=== PATIENT | female | born 1955 | race Caucasian/White ===

== ENCOUNTER 2022-06-15 09:09 | Emergency (ER) | payer OTHER, SELFPAY ==
[2022-06-15 09:15] VITALS: BP 154/82; PULSE 78; RESP 18; TEMP 36.2; O2SAT 100; BMI 26.6
--- OUTSIDE RECORDS SUMMARY | 2022-06-15 09:53 | XMS_ITS | Clinical Summary ---
:1955 Author Organization [employer] [facility] [place] [address] Care Team Providers Name Role Phone Miesha Garay MD Primary Care Provider [phone] Allergies Active Allergy Reactions Severity Noted Date Comments Penicillins Rash 08/09/2015 Medications Medication Sig Dispensed Refills Start Date End Date Status fluticasone (50 mcg Inhale 2 1 Bottle 11 11/06/2020 Active per actuation) Sprays into nasal solution both nostrils (FLONASE)Indication once daily. s: Non-seasonal allergic rhinitis due to pollen azelastine 0.05% Place 1 Drop 1 Bottle 3 11/06/2020 Active ophthalmic into both eyes (OPTIVAR) 0.05 % 2 times daily. ophthalmic solutionIndications : Non-seasonal allergic rhinitis due to pollen cetirizine (ZYRTEC) Take 1 Tablet 0 05/22/2022 Active 10 mg tablet (10 mg) by mouth once daily. ciprofloxacin HCl Take 1 Tablet 14 Tablet 0 06/12/2022 0 Active (CIPRO) 500 mg (500 mg) by 22 tabletIndications: mouth two Sigmoid times daily diverticulitis for 7 days. metroNIDAZOLE Take 1 Tablet 14 Tablet 0 06/12/2022 06/19/20 A ctive (FLAGYL) 500 mg (500 mg) by 22 tabletIndications: mouth two Sigmoid times daily diverticulitis for 7 days. Avoid alcohol. fexofenadine Take 1 tablet 90 tablet 3 11/06/2020 05/22/20 Di scontinued (DALI) 180 mg by mouth once 22 (*Patient states tabletIndications: daily with a no longer Non-seasonal meal. taking/ Not on allergic rhinitis se nding facility due to pollen list) triamcinolone 0.5% Apply 30 g 1 06/21/2021 05/22/20 Discontinued (ARISTOCORT) 0.5 % topically to 22 (*Med creamIndications: affected co mplete/Regimen Bug bite, initial area(s) 3 co mplete/Level encounter times daily. of care change) fluconazole Take 1 Tablet 2 Tablet 0 06/12/2022 06/12/20 Exp ired (DIFLUCAN) 150 mg (150 mg) by 22 tabletIndications: mouth one time Sigmoid for 1 dose. diverticulitis For vaginal yeast infection. Repeat the dose in one week if symptoms persist. Active Problems Problem Noted Date Adenomatous colon polyp 12/07/2020 Overview: Colonoscopy 12/2020 polyp, repeat in 7 ye ars Non-seasonal allergic rhinitis due to pollen Encounters Date Type Specialty Care Team Description 06/12/2022 Ancillary Procedure Arrived 06/12/2022 Office Visit Denise Rocha Abdominal Pain (RLQ pain CIELO Stone for about 5 day s-comes and goes-this m orning worse) 06/12/2022 Travel 06/12/2022 Nurse Triage Miesha Garay Abdominal P darwin Mathew MD 06/04/2022 Ancillary Procedure 06/04/2022 Travel 05/22/2022 Office Visit Miesha Garay Medicare FI RST ANNUAL MD Priyanka Visit 05/22/2022 Travel from Last 3 Months Immunizations Name Administration Dates Next Due Influenza, IIV3 (Age 6-35 mos) 07/22/2013 Influenza, IIV3 (Age >=3 years) 08/13/2017 Influenza, IIV4 06/07/2015 Tdap 07/22/2013 Family History Medical History Relation Name Comments Cancer-breast Sister 1 Ebony Relation Name Status Comments Sister 1 Ebony Alive Sister 2 Alive Social History Tobacco Use Types Packs/Day Years Used Date Never Smoker Smokeless Tobacco: Never Used Tobacco Cessation: Counseling Given: Yes Alcohol Use Standard Drinks/Week Comments Yes 2 (1 standard drink = 0.6 oz pure alcoho l) Sex Assigned at Date Recorded Not on file COVID-19 Exposure Response Date Recorded In the last 10 days, have you been in contact with No / Unsu re 06/12/2022 7:14 AM CDT someone who was confirmed or suspected to have Coronavirus/COVID-19? Obstetrics History Last Filed Vital Signs Vital Sign Reading Time Taken Comments Blood Pressure 130/77 06/12/2022 10:16 AM CDT Pulse 66 06/12/2022 10:16 AM CDT Temperature 36.6 ??C (97.9 ??F) 06/12/2022 10:16 AM CDT Respiratory Rate 18 09/17/2021 7:40 PM [employer] Oxygen Saturation 100% 06/12/2022 10:16 AM CDT Inhaled Oxygen Concentration - - Weight 79.4 kg (175 lb) 06/12/2022 10:16 AM CDT Height 171.5 cm (5' 7.52) 05/22/2022 12:35 PM CDT Body Mass Index 26.99 05/22/2022 12:35 PM CDT Plan of Treatment Health Maintenance Due Date Last Done Comments Zoster (shingles) series for age 0109/10/2004 50+ (1 of 2) DEXA/DXA scan for age 65+ 2019 Pneumococcal series for age 65+ (1 2019 - PCV) COVID-19 vaccine series (3 - 01/23/2021 11/28/2020, 021 Booster for Pfizer series) Influenza for age 65+ 05/08/2022 08/13/2017, 06/07/2015 BMI (ht and wt on same day) for 05/22/2023 05/22/2022, 09/07, age 18+ 08/20/2021, Additional history exists Depression screening for age 12+ 05/22/2023 05/22/2022, , 11/06/2020, Additional history exists Medicare Wellness for age 65+ 05/22/2023 05/22/2022 Mammogram for age 45-75 06/04/2023 06/04/2022, 11/27/2020 Tetanus booster 07/22/2023 07/22/2013 Lipids for age 45-75 11/06/2025 11/06/2020 Colonoscopy through age 75 12/06/2027 12/05/2020, Tdap Completed 07/22/2013 Hepatitis C screening for age Completed 08/20/2021 18-79 Procedures Procedure Name Priority Date/Time Associated Diagnosis Comme nts CT ABDOMEN PELVIS W STAT 06/12/2022 11:39 Abdominal pain, R LQ Results for this AM CDT (right lower procedure are i n quadrant) the results Nausea section. Loose stools CREATININE,ISTAT Routine 06/12/2022 11:17 Observation or Resul ts for this AM CDT evaluation for procedure are in suspected condition the resu lts section. BILIRUBIN DIRECT Add On 06/12/2022 10:42 Abdominal pain, RLQ Results for this AM CDT (right lower procedure are i n quadrant) the results section. CBC WITH AUTO Routine 06/12/2022 10:42 Abdominal pain, RLQ Res ults for this DIFFERENTIAL AM CDT (right lower procedure are i n quadrant) the results Nausea section. Loose stools COMP METABOLIC PANEL Routine 06/12/2022 10:42 Abdominal pain, RLQ Results for this AM CDT (right lower procedure are i n quadrant) the results Nausea section. Loose stools CBC WITH AUTO Routine 06/12/2022 10:42 Abdominal pain, RLQ Res ults for this DIFFERENTIAL AM CDT (right lower procedure are i n quadrant) the results Nausea section. Loose stools XR MAMMO SELWYN BILAT Routine 06/04/2022 8:34 AM Visit for scree dom Results for this SCREEN CDT mammogram procedure are i n the results section. from Last [address] ABDOMEN PELVIS W (06/12/2022 11:39 AM CDT) Anatomical Region Laterality Modality Abdomen, Pelvis, AORTA, LIVER, SPLEEN Co mputed Tomography Specimen (Source) Anatomical Collection Method Collection Time Re ceived Time Location / / Volume Laterality 06/12/2022 12:14 PM CDT Impressions 06/12/2022 12:14 PM CDT Prominence of the periuterine vasculature with enlargement of the left ovarian vein measuring up to 1.2 cm. Findings can be seen in pelvic congestion syndrome. There are scattered colonic diverticula with possible mild inflammation adjacent to the sigmoid colon suspicious for mild diverticulitis. No evidence of perforation or adjacent abscess. Alternatively th is mild inflammation may be due to conge stion from the suspected pelvic congestion. Please note that all CT scans at this fa cility use dose modulation, iterative reconstruction, and/or weight-based dosing when appropriate to reduce radiation dose to as low as reasonably achievable. Dictated by Genaro Gaona MD @ 06/12/2022 12:14:40 PM (Electronically Signed) Narrative 06/12/2022 12:14 PM CDT For Patients: ??As a result of the Cures Act, medical imaging exams and procedure report s are released immediately into your [employer] medical record. ??You may view this report before your referring provider. ??If you have questions, please contact your health care provider. INDICATION: RLQ PAIN. TECHNIQUE: CT abdomen and pelvis with 100 cc Omnipa que 350 IV contrast. COMPARISON: None. FINDINGS: The liver is normal in size, shape and a ttenuation. Gallbladder and biliary tree are normal. The spleen, adrenal glands and pancreas are within normal limits. The kidneys are unremarkable. No evidence of bowel obstruction. The ap pendix appears unremarkable. There are scattered colonic diverticula with mild inflammation adjacent to the sigmoid colon suspicious for mild diverticulitis. No evidence of perforation or adjacent abscess. No significant free fluid and no free ai r. Prominence of the periuterine vasculatur e with enlargement of the left ovarian vein measuring up to 1.2 cm. Findings can be seen in pelvic congestion syndrome. The lower chest is unremarkable. Procedure Note Genaro Gaona MD - 06/12/2022F ormatting of this note might be different from the original. For Patients: As a result of the Cures Act, medical imaging exams and procedure reports are released immediately into your electronic medical record. You may view this report before your referring provider. If you have questions, please contact [facility] health care provider. INDICATION: RLQ PAIN. TECHNIQUE: CT abdomen and pelvis with 100 cc Omnipa que 350 IV contrast. COMPARISON: None. FINDINGS: The liver is normal in size, shape and a ttenuation. Gallbladder and biliary tree are normal. The spleen, adrenal glands and pancreas are within normal limits. The kidneys are unremarkable. No evidence of bowel obstruction. The ap pendix appears unremarkable. There are scattered colonic diverticula with mild inflammation adjacent to the sigmoid colon suspicious for mild diverticulitis. No evidence of perforation or adjacent abscess. No significant free fluid and no free ai r. Prominence of the periuterine vasculatur e with enlargement of the left ovarian vein measuring up to 1.2 cm. Findings can be seen in pelvic congestion syndrome. The lower chest is unremarkable. IMPRESSION: Prominence of the periuterine vasculatur e with enlargement of the left ovarian vein measuring up to 1.2 cm. Findings can be seen in pelvic congestion syndrome. There are scattered colonic diverticula with possible mild inflammation adjacent to the sigmoid colon suspicious for mild diverticulitis. No evidence of perforation or adjacent abscess. Alternatively this mild inflammation may be due to congestion fr om the suspected pelvic congestion. Please note that all CT scans at this [facility] use dose modulation, iterative reconstruction, and/or weight-based dosing when appropriate to reduce radiation dose to as low as reasonably achievable. Dictated by Genaro Gaona MD @ 06/12/2022 12:14:40 PM (Electronically Signed) Denise BUCK CT CREATININE,ISTAT (06/12/2022 11:17 AM CDT) athologist Signature CREATININE, 0.70 0.57 - 06/12/2022 [facility] POCT 1.11 mg/dL 11:33 AM T [facility] eGFR >90 >90 06/12/2022 [facility] mL/min/1.7 11:[address] Comment: As of 2021, eGFR is calcu lated by the CKD-EPI creatinine equation without race adjustment. eGFR can be inf luenced by muscle mass, exercise, and diet. The reported eGFR is an estimation only and is only applicable if the renal function is stable. Specimen Anatomical Collection Method Collection Time Receive d Time (Source) Location / / Volume Laterality Blood BLOOD SPECIMEN / 06/12/2022 11:17 022 Unknown AM CDT 11:33 AM CDT Denise BUCK CHEMISTRY Performing Organization Address City/State/ZIP Code Phon e Number [facility] [address] [place] [address] CBC WITH AUTO DIFFERENTIAL (06/12/2022 10:42 AM CDT) athologist Signature WHITE BLOOD 5.3 4.5 - 11.0 06/12/2022 [facility] COUNT thou/cu mm 10:47 AM [facility] RED BLOOD COUNT 4.68 4.00 - 06/12/2022 [facility] 5.20 10:47 AM T [place] mil/cu mm CLINIC HEMOGLOBIN 14.7 12.0 - 06/12/2022 [facility] 16.0 g/dL 10:47 AM [facility] HEMATOCRIT 42.4 33.0 - 06/12/2022 [facility] 51.0 % 10:47 AM [facility] MCV 91 80 - 100 06/12/2022 [facility] fL 10:47 AM [facility] MCH 31.4 26.0 - 06/12/2022 [facility] 34.0 pg 10:47 AM [facility] MCHC 34.7 32.0 - 06/12/2022 [facility] 36.0 g/dL 10:47 AM [facility] RDW 14.2 11.5 - 06/12/2022 [facility] 15.5 % 10:47 AM [facility] PLATELET COUNT 237 140 - 440 06/12/2022 [facility] thou/cu mm 10:47 AM [facility] MPV 9.4 6.5 - 11.0 06/12/2022 [facility] 10:47 AM [facility] % NEUT 68.0 % 06/12/2022 [facility] 10:47 AM [facility] % LYMPH 23.0 % 06/12/2022 [facility] 10:47 AM [facility] % MONO 7.8 % 06/12/2022 [facility] 10:47 AM [facility] % EOS 1.0 % 06/12/2022 [facility] 10:47 AM T [facility] % BASO 0.2 % 06/12/2022 [facility] 10:47 AM T [facility] ABSOLUTE 3.6 1.7 - 7.0 06/12/2022 [facility] NEUTROPHILS thou/cu mm 10:47 AM T [facility] ABSOLUTE 1.2 0.9 - 2.9 06/12/2022 [facility] LYMPHOCYTES thou/cu mm 10:47 AM T [facility] ABSOLUTE 0.4 <0.9 06/12/2022 [facility] MONOCYTES thou/cu mm 10:47 AM CDT [facility] ABSOLUTE 0.1 <0.5 06/12/2022 [facility] EOSINOPHILS thou/cu mm 10:47 AM CDT [facility] ABSOLUTE 0.0 <0.3 06/12/2022 [facility] BASOPHILS thou/cu mm 10:47 AM CDT [facility] Specimen Anatomical Collection Method / Collection Time Recei ian Time (Source) Location / Volume Laterality Blood BLOOD SPECIMEN / Venipuncture / 06/12/2022 10:42 06/12 Unknown Unknown AM CDT 10:43 AM CDT Denise BUCK HEMATOLOGY Performing Organization Address City/State/ZIP Code Phon e Number [facility] [address] [place] [address] (ABNORMAL) BILIRUBIN DIRECT (06/12/2022 10:42 AM CDT) P athologist Signature BILIRUBIN,DIRE 0.6 (H) 0.1 - 0.5 06/13/2022 [facility] CT mg/dL 2:50 PM CDT [facility] Specimen Anatomical Collection Method / Collection Time Recei ian Time (Source) Location / Volume Laterality Blood BLOOD SPECIMEN / Venipuncture / 06/12/2022 10:42 06/12 Unknown Unknown AM CDT 10:43 AM CDT Denise BUCK CHEMISTRY Performing Organization Address City/State/ZIP Code Phon e Number [facility] [address] [place] [address] LAB[facility] [address] LABORATORY (ABNORMAL) COMP METABOLIC PANEL (06/12/2022 10:42 AM CDT) Patholo gist Method Time Signature SODIUM 141 135 - 145 06/13/2022 [facility] mmol/L 11:37 AM CDT [facility] POTASSIUM 4.8 3.5 - 5.0 06/13/2022 [facility] mmol/L 11:37 AM CDT [facility] CHLORIDE 106 98 - 110 06/13/2022 [facility] mmol/L 11:37 AM CDT [facility] CO2,TOTAL 27 21 - 31 06/13/2022 [facility] mmol/L 11:37 AM CDT [facility] ANION GAP 8 5 - 18 06/13/2022 [facility] 11:37 AM CDT [facility] GLUCOSE 92 65 - 100 06/13/2022 [facility] mg/dL 11:37 AM CDT [facility] CALCIUM 9.8 8.5 - 10.5 06/13/2022 [facility] mg/dL 11:37 AM CDT [facility] BUN 11 8 - 25 06/13/2022 [facility] mg/dL 11:37 AM CDT [facility] CREATININE 0.77 0.57 - 06/13/2022 [facility] 1.11 mg/dL 11:37 AM CDT [facility] BUN/CREAT RATIO 14 10 - 20 06/13/2022 [facility] 11:37 AM CDT [facility] ALBUMIN 4.5 3.2 - 4.6 06/13/2022 [facility] g/dL 11:37 AM CDT [facility] PROTEIN,TOTAL 6.8 6.0 - 8.0 06/13/2022 [facility] g/dL 11:37 AM CDT [facility] GLOBULIN 2.3 2.0 - 3.7 06/13/2022 [facility] g/dL 11:37 AM CDT [facility] A/G RATIO 2.0 1.0 - 2.0 06/13/2022 [facility] 11:37 AM CDT [facility] BILIRUBIN,TOTAL 1.7 (H) 0.2 - 1.2 06/13/2022 [facility] mg/dL 11:37 AM CDT [facility] ALK PHOSPHATASE 73 50 - 136 06/13/2022 [facility] IU/L 11:37 AM CDT [facility] ALT (SGPT) 19 8 - 45 06/13/2022 [facility] IU/L 11:37 AM CDT [facility] AST (SGOT) 22 2 - 40 06/13/2022 [facility] IU/L 11:37 AM CDT [facility] eGFR 85 (L) >90 06/13/2022 [facility] mL/min/1.7 11:37 AM CDT [facility] 3m2 TRAL LABORATORY Comment: As of 2021, eGFR is calcu lated by the CKD-EPI creatinine equation without race adjustment. eGFR can be inf luenced by muscle mass, exercise, and diet. The reported eGFR is an estimation only and is only applicable if the renal function is stable. Specimen Anatomical Collection Method / Collection Time Recei ian Time (Source) Location / Volume Laterality Blood BLOOD SPECIMEN / Venipuncture / 06/12/2022 10:42 06/12 Unknown Unknown AM CDT 10:43 AM CDT Denise BUCK CHEMISTRY Performing Organization Address City/State/ZIP Code Phon e Number [facility] [address] [place] [address] [facility] [address] LABORATORY XR MAMMO SELWYN BILAT SCREEN (06/04/2022 8:34 AM CDT) Anatomical Region Laterality Modality BREASTS, Breast Left, Breast Right Bilateral Mammo graphy Specimen (Source) Anatomical Location Collection Method / Collectio n Time Received Time / Laterality Volume Impressions 06/04/2022 4:15 PM CDT ??There is no radiographic evidence for malignancy. ??Recommend annual mammograms. MAMMOGRAM ASSESSMENT: ??ACR 1 Negative PATIENTS: You will also receive a letter with your examination results in an easy to read format. ??If you have qu estions about your results, please contact your referring provider. Narrative 06/04/2022 4:15 PM CDT For Patients: As a result of the Century Cures Act, medical imaging exams and procedure reports are released immediately into your electronic medical record. You may view this report before your referring provider. If you have questions, please contact doctors hospital provider. XR MAMMO SELWYN BILAT SCREEN [[id number]] CLINICAL HISTORY: ??This is an asymptoma tic 66 y.o. patient. INDICATION FOR EXAM: Mammogram Screening . TECHNIQUE: CC & MLO views were obtained. ??This study was evaluated with the assistance of Computer-Aided Detecti on. Breast Tomosynthesis was used in interpretation. COMPARISON FILM: Yes 11/27/20 [facility] ?? FINDINGS: ??The breasts have scattered a reas of fibroglandular density. There are no dominant masses, suspicious micro calcifications or areas of architectural distortion. Miesha Garay MD MAMMO from Last 3 Months Insurance Payer Benefit Plan / Subscriber ID Effective Dates Phone Addre ss Type Group [employer] [id number] 2021-Present [address] [employer] [place] [address] Care Teams Dairy Equipment Repairer Relationship Specialty Start Date End Date Miesha Garay MD PCP - General Family Practice 05/24/21 [address] [place] [id number]
--- NOTE | 2022-06-15 09:55 | ED_ITS ---
HPI - General Adult General Chief complaint: Unspecified Complaint, Adult Stated complaint: Diverticulitis Time Seen by Provider: 06/15/22 09:28 History of Present Illness HPI narrative: 66-year-old woman presenting to the emergency department with concern of potentially worsening diverticulitis. Was diagnosed a few days ago initiated on ciprofloxacin and metronidazole. She had gone in with some mild right low abdominal pain thinking she had appendicitis. Diagnosis was made with CT imaging. Pain is continued to improve. She has not had any fever. What is concerning though is that last night started to have diarrhea which continue this morning. No melena or hematochezia described. She did have associated nausea. That has settled again. Anticipating travel here shortly to [place]. She has not had any COVID exposures. No rashes. Generally healthy. Related Data Home Medications Medication Instructions Recorded Confirmed ciprofloxacin HCl 500 mg tablet mg 06/15/22 metronidazole 500 mg tablet mg 06/15/22 Allergies Allergy/AdvReac Type Severity Reaction Status Date / Time Penicillins Allergy Verified 06/15/22 09:19 Review of Systems Status of ROS: Reports: 10 or more systems reviewed and unremarkable except as noted in History and below PFSH PFS Social History Smoking Status: Never smoker Do you use any of these nicotine containing products: None How often do you have a drink containing alcohol: never How often do you have six or more drinks on one occasion: Never AUDIT-C Alcohol total score: 0 Non-prescribed substance use: denies use Exam Narrative: Exam Narrative: Pleasant. NAD. Transitioning without difficulty. Breathing easily. Cranial nerves 2-12 intact. Of the extremities or difficulty. Cardiovascular was regular rate and rhythm. Abdomen is normal bowel sounds. Soft and nontender. No masses appreciated. No flank pain. Const: Vital Signs, click to edit/add: Vital Signs - 24 hr 06/15/22 09:15 Temperature 97.1 F L Pulse Rate [Right Pulse Oximeter] 78 Respiratory Rate 18 Blood Pressure [Ri ght Upper Arm] 154/82 H Pulse Oximetry 100 Oxygen Delivery Me thod Room Air Documenting provider has reviewed patient's vital signs: yes Course Course Hospital Course: No believe any interventions are necessary here. Vital Signs Vital signs: Initial Vital Signs Temperature 97.1 F L 06/15/22 09:15 Temperature Source Temporal Artery Scan 06/15/22 09:15 Pulse Rate 78 06/15/22 09:15 Respiratory Rate 18 10/09/22 09:15 Blood Pressure 154/82 H 06/15/22 09:15 Blood Pressure Mean 106 06/15/22 09:15 Blood Pressure Position Sitting 06/15/22 09:15 Pulse Oximetry 100 06/15/22 09:15 Oxygen Delivery Method 06/15/22 09:15 Vital Signs Temperature 97.1 F L 06/15/22 09:15 Pulse Rate 78 06/15/22 09:15 Respiratory Rate 18 06/15/22 09:15 Blood Pressure 154/82 H 06/15/22 09:15 Pulse Oximetry 100 06/15/22 09:15 Oxygen Delivery Method 06/15/22 09:15 Temperature 97.1 F L 06/15/22 09:15 Pulse Rate 78 06/15/22 09:15 Respiratory Rate 18 06/15/22 09:15 Blood Pressure 154/82 H 06/15/22 09:15 Pulse Oximetry 100 06/15/22 09:15 Oxygen Delivery Method 06/15/22 09:15 Medical Decision Making MDM Narrative Medical decision making narrative: She did prefer not to have COVID testing at this time. Sounds like there may be a secondary diarrheal illness in addition to diverticulitis as diagnosed elsewhere. Discharge Plan Discharge Clinical Impression: Diarrhea, Diverticulitis Patient Disposition: Home, Self-Care Condition: Stable Additional Instructions: Continue to focus on hydration. Loperamide might help with diarrhea. Caution though use in the setting of fever or blood in your stool. I would continue to take your ciprofloxacin and metronidazole as prescribed. Use the Zofran from [facility] if needed. The seen for increasingly severe pain, intractable diarrhea, intractable vomiting, associated fever. Prescriptions: No Action metronidazole 500 mg tablet ciprofloxacin HCl 500 mg tablet Follow Up/Referrals: Miesha Garay MD [Primary Care Provider] - Stand Alone Forms: [employer] Info Instructions
== END 2022-06-15 10:06 | disposition home or self-care (01) ==
LOC: ED 09:52
PROVIDERS: Emergency Provider Family Medicine; PCP Family Medicine
DX: R19.7 Diarrhea, unspecified (principal); K57.92 Diverticulitis of intestine, part unspecified, without perforation or abscess without bleeding
CPT/HCPCS: 99283; 99284

== ENCOUNTER 2024-06-02 17:49 | Emergency (ER) | payer OTHER, SELFPAY ==
[2024-06-02 18:14] VITALS: BP 149/82; PULSE 70; RESP 18; TEMP 36.6; O2SAT 98; BMI 26.6
--- NOTE | 2024-06-02 19:03 | ED.CHESTPAIN ---
HPI - Chest Pain General Chief Complaint: Chest Pain Stated Complaint: chest/back pain Time Seen by Provider: 06/02/24 18:21 History of Present Illness HPI narrative: This 68-year-old female comes in reporting an episode of chest and back discomfort that occurred 5 days ago. This happened while she was driving along trip back from [place]. The symptoms lasted about 10 minutes. She states that it started in her upper back and then seemed to radiate around into her chest. She did have some associated nausea. This symptoms seemed to resolve after about 10 minutes and she has felt fine since then. She was talking with some family members who encouraged her to have this checked out so she called the nurse line and was told to come in here right away. She states that she has not had any chest discomfort since then. She does not report any exercise intolerance. She denies having any vomiting, lightheadedness, shortness of breath, or diaphoresis. She states that she had some symptoms like this a few years ago and took some Pepto-Bismol and got immediate relief. She was thinking that it may have been related to some reflux symptoms in her GI tract at that time. Around then also, about 3 or 4 years ago, she did have a full cardiology checkup with normal results. Related Data Home Medications ?Medication ?Instructions ?Recorded ?Confirmed No Known Home Medications 06/02/24 06/02/24 Allergies Allergy/AdvReac Type Severity Reaction Status Date / Time Penicillins Allergy Verified 06/15/22 09:19 Review of Systems Status of ROS Reports: 10 or more systems reviewed and unremarkable except as noted in History and below Narrative Constitutional: No fevers, no weight gain or loss. Eyes: No discharge. No vision changes. HENT: No congestion, no sore throat, no ear pain. Cardiovascular: No palpitations. Respiratory: No shortness of breath, no wheezes, no cough. Gastrointestinal: No abdominal pain, no vomiting, no diarrhea. Genitourinary: No dysuria, no hematuria. Musculoskeletal: Normal range of motion. Skin: No rashes, no pruritis. Neurological: No dizziness, weakness, sensory change, speech change. Endo/Heme/Allergies: No bruising or bleeding. No polydipsia. Pysch: no suicidality, no anxiety, no insomnia. All other systems reviewed and are negative. PFSH PFSH Social History Smoking Status: Never smoker Do you use any of these nicotine containing products: None How often do you have a drink containing alcohol: never How often do you have six or more drinks on one occasion: Never AUDIT-C Alcohol total score: 0 Non-prescribed substance use: denies use Exam Narrative Exam Narrative: Constitutional: Well-developed, well-nourished, no acute distress. HEENT: Normocephalic, atraumatic. Neck: Normal range of motion. Nontender. Supple. Heart: Regular. No murmurs. Normal rate. Intact distal pulses. Lungs: Clear to auscultation. No chest discomfort. No wheezes, rhonchi, or rales. Abdomen: Normal bowel sounds. Nontender. No rebound tenderness. Genitalia: Deferred. Back: No midline tenderness. Normal range of motion. Extremities: Normal range of motion. No injury. Skin: Intact. No rash. Warm. No erythema or pallor. Neurologic: No altered sensation. No weakness. Alert and oriented. Psychiatric: No suicidality. No anxiety or depression. No insomnia. Nursing notes and vitals signs are reviewed. Const Vital Signs, click to edit/add: Vital Signs - 24 hr 06/02/24 18:14 Temperature 97.9 F Pulse Rate [Right Pulse Oximeter] 70 Respiratory Rate 18 Blood Pressure [Right Upper Arm] 149/82 H Pulse Oximetry 98 Oxygen Delivery Method Room Air Course Vital Signs Vital signs: Initial Vital Signs Temperature 97.9 F 06/02/24 18:14 Temperature Source Temporal Artery Scan 06/02/24 18:14 Pulse Rate 70 06/02/24 18:14 Respiratory Rate 18 06/02/24 18:14 Blood Pressure 149/82 H 06/02/24 18:14 Blood Pressure Mean 104 06/02/24 18:14 Blood Pressure Position Sitting 06/02/24 18:14 Pulse Oximetry 98 06/02/24 18:14 Oxygen Delivery Method Room Air 06/02/24 18:14 Vital Signs Temperature 97.9 F 06/02/24 18:14 Pulse Rate 70 06/02/24 18:14 Respiratory Rate 18 06/02/24 18:14 Blood Pressure 149/82 H 06/02/24 18:14 Pulse Oximetry 98 06/02/24 18:14 Oxygen Delivery Method Room Air 06/02/24 18:14 Temperature 97.9 F 06/02/24 18:14 Pulse Rate 70 06/02/24 18:14 Respiratory Rate 18 06/02/24 18:14 Blood Pressure 149/82 H 06/02/24 18:14 Pulse Oximetry 98 06/02/24 18:14 Oxygen Delivery Method Room Air 06/02/24 18:14 MDM - Chest Pain MDM Narrative Medical decision making narrative: This patient comes in reporting an episode of chest discomfort that came from her back and occurred about 5 days ago and lasted for about 10 minutes. Other than this she is felt normal except for little bit and nausea that extended over night after that chest pain occurrence. She does not have any exercise intolerance. She arrives here with normal vital signs. EKG shows no sign of ST or T-wave abnormalities. I did check also point of care troponin and this returns at 0. This was reassuring to the patient. She is okay to be discharged home. I did suggest that this may be some reflux symptoms as she thinks she has had occasional symptoms like this in the past. I recommended using a proton pump inhibitor such as Prilosec or Nexium. Lab Data Labs: Lab Results 06/02/24 Range/Units 19:01 POC Troponin I 0.00 L (0.01-0.04) ng/ml ECG Data Attestation: I personally reviewed and interpreted this ECG as follows: Interpretation: Normal sinus rhythm. Rate is 70 beats per minute. There are no ST or T-wave abnormalities. Discharge Plan Discharge Clinical Impression: Atypical chest pain Patient Disposition: Home, Self-Care Condition: Stable Additional Instructions: Continue current plans. Use eror-cxb-gieaswd medicines such as Prilosec, Nexium, or Prevacid as needed and directed for heartburn symptoms. Return if worsening. Prescriptions: No Action No Known Home Medications Follow Up/Referrals: Miesha Garay MD [Primary Care Provider] - Stand Alone Forms: [employer] Info Instructions
[2024-06-02 19:42] VITALS: BP 135/78; PULSE 78; RESP 18; TEMP 36.6; O2SAT 98
--- OUTSIDE RECORDS SUMMARY | 2024-06-02 19:43 | XMS_ITS | Clinical Summary ---
Author Organization [facility] Address [place], [place] [address] Care Team Providers Care Network Design Architect Name Role Phone Miesha Garay MD Primary Care Provide r Allergies Active Allergy Reactions Criticality Noted Date Comments Penicillins Rash 08/09/2015 Medications Medication Sig Dispensed Refills Start Date End Date Status fluticasone (50 mcg per actuation) nasal solution (FLONASE)Indicat ions:Non-seasona l allergic rhinitis due to pollen Inhale 2 Sprays into both nostrils once daily. 1 Bottle 11 11/06/2020 Active azelastine 0.05% ophthalmic (OPTIVAR) 0.05 % ophthalmic solutionIndicati ons:Non-seasonal allergic rhinitis due to pollen Place 1 Drop into both eyes 2 times daily. 1 Bottle 3 11/06/2020 Active cetirizine (ZYRTEC) 10 mg tablet Take 1 Tablet (10 mg) by mouth once daily. 0 05/22/2022 Active triamcinolone (ARISTOCORT; KENALOG) 0.1 % creamIndications :Acute eczema Apply topically to affected area(s) two times daily. 45 g 10/23/2023 Active triamcinolone (ARISTOCORT; KENALOG) 0.1 % creamIndications :Nummular dermatitis Apply to affected areas twice daily for 2-3 weeks, then take 1 week break. Can repeat course if needed, then use as needed during flares only. 45 g 2 12/02/2023 Active ketoconazole 2% topical (NIZORAL) creamIndications :Tinea corporis Apply topically to affected area(s) two times daily. 30 g 10/12/2023 05/18/2024 Discontinued( *Patient states no longer taking) naproxen (NAPROSYN) 500 mg tabletIndication s:Left medial knee pain Take 1 Tablet (500 mg) by mouth two times daily with meals for 10 days. 20 Tablet 05/18/2024 05/28/2024 Active Problems Problem Noted Date Diagnosed Date Diarrhea 04/30/2023 Diverticulitis 04/30/2023 Paroxysmal supraventricular tachycardia 02/20/20 23 Adenomatous colon polyp 12/07/2020 Overview (12/07/2020): Colonoscopy 12/2020 polyp, repeat in 7 years Non-seasonal allergic rhinitis due to pollen 10/2020 Mild mitral regurgitation 05/17/2020 Mild tricuspid regurgitation 05/17/2020 Atypical chest pain 12/14/2019 Overview (04/30/2023): Neg exercise stress test March 2020 Palpitations 12/14/2019 Encounters Date Type Department Care Team Description 06/02/2024 Nurse Triage [facility] [address] [place] [address] Miesha Garay MD Chest Pain/problem 06/02/2024 Telephone [facility] [address] [place] [address] Miesha Garay MD 05/18/2024 9:50 AM CDT Office Visit [facility] [address] [place] [address] Bronwyn Monique MD Knee Injury (Running around with grand kids took a sharp turn and hurt left knee. Happened about 10 days ago. ) 05/18/2024 Travel from Last 3 Months Immunizations Name Administration Dates Next Due COVID-19 vaccine (DCWafers[employer] 30mcg/0.3mL) 12YO+ BIVALENT ELGIN CHEN 05/30/2022 Influenza, IIV3 (Age 6-35 mos) 07/22/2013 Influenza, IIV3 (Age >=3 years) 08/13/2017 Influenza, IIV4 06/07/2015 Influenza, Inactivated AIIV4 (Age 65+ Years) Preserv Free 08/06/2023 Pneumococcal Conj 20-valent (Prevnar 20) 023 Tdap 07/22/2013 Family History Medical History Relation Name Comments Cancer-breast Sister 1 Ebony Cancer-breast Sister 2 Cancer-ovarian No Family History Relation Name Status Comments Sister 1 Ebony Alive Sister 2 Alive Social History Tobacco Use Types Packs/Day Years Used Date Smoking Tobacco: Never Smokeless Tobacco: Never Tobacco Cessation:Counseling Given: Yes Alcohol Use Standard Drinks/Week Comments Yes 2 (1 standard drink = 0.6 oz pur e alcohol) PHQ-2 Answer Date Recorded PHQ-2 TOTAL SCORE 1 08/06/2023 Social Connections Answer Date Recorded Frequency of Communication with Friends and Fami ly 0 08/06/2023 Financial Resource Strain Answer Date R ecorded Difficulty of Paying Living Expenses 3 08/06/2023 Difficulty of Paying Living Expenses Not on file 08/06/2023 Food Insecurity Answer Date Recorded Worried About Running Out of Food in the Last Ye ar 1 08/06/2023 Transportation Needs Answer Date Record ed Lack of Transportation (Medical) 1 08/06/2023 Housing Stability Answer Date Recorded Unable to Pay for Housing in the Last Year 1 08/06/2023 Sex and Gender Information Value Date Recorded Sex Assigned at Not on file Gender Identity Not on file Sexual Orientation Not on file Obstetrics History Last Filed Vital Signs Vital Sign Reading Time Taken Comments Blood Pressure 99/64 05/18/2024 9:47 AM CDT Pulse 68 05/18/2024 9:47 AM CDT Temperature 36.8 ??C (98.2 ??F) 04/30/2023 4:52 PM CD T Respiratory Rate 22 04/30/2023 4:52 PM CDT Oxygen Saturation 99% 05/18/2024 9:47 AM CDT Inhaled Oxygen Concentration - - Weight 80.9 kg (178 lb 6.4 oz) 10/23/2023 12:37 PM COMPOSITE ENGINEER Height 170.8 cm (5' 7.25) 08/06/2023 10:[address] Body Mass Index 27.73 08/06/2023 10:55 AM COMPOSITE ENGINEER Plan of Treatment Health Maintenance Due Date Last Done Comments Zoster (shingles) series for age 50+ (1 of 2) 2004 Tetanus booster 07/22/2023 07/22/2013 COVID-19 vaccine series (4 - 2024-25 season) 2024 05/30/2022, 11/28/2020, 11/07/2020 Influenza for age 65+ 05/08/2024 08/06/2023 , 08/13/2017, 06/07/2015 BMI (ht and wt on same day) for age 18+ 08/06/2024 08/06/2023, 04/30/2023, 05/22/2022, Additional history exists Depression screening for age 12+ 08/06/2024 08/06/2023, 05/22/2022, 05/22/2022, Additional history exists Mammogram for age 45-75 08/06/2024 08/06/20, 06/04/2022, 11/27/2020 Medicare Wellness for age 65+ 08/06/2024 08/06/2023, 05/22/2022 Lipids for age 45-75 11/06/2025 11/06/2020 Colonoscopy through age 75 12/06/2027 12/05/2020, Tdap Completed 07/22/2013 Hepatitis C screening for ag e 18-79 Completed 08/20/2021 Pneumococcal series for age 65+ Completed DEXA/DXA scan for age 65+ Completed 08/18/2023 Procedures Procedure Name Priority Date/Time Associated Diagnosis Comments XR DXA BONE DENSITY 2 SITES AXIAL Routine 08/18/2023 11:41 AM COMPOSITE ENGINEER Menopause XR MAMMO SELWYN BILAT SCREEN Routine 08/06/2023 12:02 PM COMPOSITE ENGINEER Visit for screening mammogram ANTI HCV Routine 08/20/2021 11:59 AM COMPOSITE ENGINEER Encounter for hepatitis C screening test for low risk patient COLONOSCOPY 12/05/2020 10:14 AM CDT LIPID PANEL W REFLEX MEASURED LDL Routine 11/06/2020 12:22 PM COMPOSITE ENGINEER Lipid screening from Last 3 Months or Most Recently Relevant to Health Maintenance Results * XR DXA BONE DENSITY 2 SITES AXIAL (08/18/2023 11:41 AM COMPOSITE ENGINEER) Anatomical Region Laterality Modality Spine, HIPS, HIPL, HIPR Other Impressions 08/26/2023 7:30 AM COMPOSITE ENGINEER Normal bone density. RECOMMENDATIONS: The National Osteoporosis Foundation recommends pharmacologic treatment for patients with T-scores of -2.5 or less, patients with prior history of fragility fractures, or patients with 10-year probability of greater than 3% at hips or greater than 20% of suffering major osteoporotic fractures. Recommend continued optimization of calcium and vitamin D intake through dietary means and/or supplementation and regular exercise. Repeat scan recommended in 3-5 years. Charlotte Hurtado PA-C [facility] 08/26/2023 Narrative 08/26/2023 7:30 AM COMPOSITE ENGINEER For Patients: Results are automatically released to your [facility] account once available, in compliance with federal regulations. This means that you may see your results before your provider has had a chance to review them. Please allow 2-3 business days for your provider to comment on the results. XR DXA Bone Mineral Density (BMD) [facility] [address] [facility] [address] PATIENT NAME: Nieves Kimball DATE OF : 1955 EXAM DATE: 08/18/2023 REQUESTING PROVIDER: Miesha Garay MD GENDER AT : female HEIGHT: 5' 7.25 (08/06/2023) WEIGHT: ??175 lb 6.4 oz (08/06/2023) MENOPAUSAL STATUS: Postmenopausal RACE/ETHNICITY: White RISK FACTORS: White Race CURRENT MEDICATION FOR BONE LOSS: NONE INDICATION: Menopause COMPARISON DATE(S): None DXA scans are compared to prior studies for a patient only when the two (or more) studies were performed on the same scanner. It is not possible to compare data generated on one scanner to data from another because there are not standards in DXA equipment. This applies even if the two scanners are made by the same sample patternmaker. PROCEDURE: Dual-energy x-ray absorptiometry performed with routine technique. Reporting is completed in the form of a T-score. The T-score represents the standard deviation from peak bone mass based on young healthy adult. A Z-score is used for diagnosis in premenopausal women, and for men under the age of 50. FINDINGS: RESULT LUMBAR SPINE L1 - L4 (w/o L3) BMD: 1.154 g/cm2 T-Score: - 0.3 Z-Score: + 0.9 Change from prior: ??None RESULTS FEMUR Left femoral neck BMD: 0.951 g/cm2 T-Score: - 0.6 Z-Score: + 0.7 Change from prior: ??None Right femoral neck BMD: 0.957 g/cm2 T-Score: - 0.6 Z-Score: + 0.7 Change from prior: ??None Left hip BMD: 1.028 g/cm2 T-Score: + 0.2 Z-Score: + 1.2 Change from prior: ??None Right hip BMD: 1.053 g/cm2 T-Score: + 0.4 Z-Score: + 1.4 Change from prior: ??None WHO criteria: Normal: T-score at or above -1 SD Osteopenia: T-score between -1.1 and -2.4 SD Osteoporosis: T-score at or below -2.5 SD Miesha Garay MD DEXA * XR MAMMO SELWYN BILAT SCREEN (08/06/2023 12:02 PM COMPOSITE ENGINEER) Anatomical Region Laterality Modality BREASTS, Breast Left, Breast Right Bilateral Mammography Impressions 08/06/2023 2:02 PM COMPOSITE ENGINEER ??There is no radiographic evidence for malignancy. ??Recommend annual mammograms. MAMMOGRAM ASSESSMENT: ??ACR 1 Negative PATIENTS: You will also receive a letter with your examination results in an easy to read format. ??If you have questions about your results, please contact your referring provider. Narrative 08/06/2023 2:02 PM COMPOSITE ENGINEER For Patients: As a result of the 21st Century Cures Act, medical imaging exams and procedure reports are released immediately into your electronic medical record. You may view this report before your referring provider. If you have questions, please contact your health care provider. XR MAMMO SELWYN BILAT SCREEN [[id number]] CLINICAL HISTORY: ??This is an asymptomatic 67 y.o. patient. INDICATION FOR EXAM: Mammogram Screening. TECHNIQUE: CC & MLO views were obtained. ??This study was evaluated with the assistance of Computer-Aided Detection. Breast Tomosynthesis was used in interpretation. COMPARISON FILM: Yes 06/04/22 [facility] 11/27/20 [facility] FINDINGS: ??The breasts have scattered areas of fibroglandular density. There are no dominant masses, suspicious micro calcifications or areas of architectural distortion. Miesha Garay MD MAMMO * ANTI HCV (08/20/2021 11:59 AM COMPOSITE ENGINEER) HEPATITIS C ANTIBODY Non-React jt Non-React jt 08/21/2021 9:43 AM COMPOSITE ENGINEER [facility] Comment:Antibodies to HCV no t detected; does not exclude the possibility of exposure to HCV. Blood BLOOD SPECIMEN / Unknown Venipuncture / Unknown 08/20/2021 11:59 AM COMPOSITE ENGINEER 08/20/2021 11:59 AM COMPOSITE ENGINEER Miesha Garay MD SEND OUTS [facility] [address] [place] [address], * COLONOSCOPY (12/05/2020 10:14 AM CDT) 12/05/2020 10:1 4 AM CDT Narrative Transcriptions Trey Escobar MD - 12/05/2020 11:18 AM CDT Patient Name: Nieves Kimball Procedure Date: 12/05/2020 Gender: Female Date of : 1955 Admit Type: Outpatient Procedure: Colonoscopy Proceduralist: Trey Escobar MD , Nani Johnston (Nurse), Alana Cano RN (Nurse) Indications/Pre-Op Diagnosis: Screening for colorectal malignant neoplasm, This is the patient's first colonoscopy Medications: Fentanyl 100 micrograms IV, Midazolam 4 mgIV, The level of sedation administered wasmoderate Procedure Description: The patient had risks, benefits and alternatives explained to andgave informed consent. The patient had a stable cardiopulmonary status and judged an adequate candidate for conscious sedation. The [id number] was passed through the anus and advanced tothe cecum, identified by appendiceal orifice and ileocecal valve. The colonoscopy was performed without difficulty. The patient toleratedthe procedure well. The quality of the bowel preparation was good. The ileocecal valve, appendiceal orifice, and rectum were photographed. Complications: No immediate complications. Estimated Blood Loss & Specimen: Estimated blood loss: none. Specimen collected - Yes and sent to Laboratory Findings: The perianal and digital rectal examinations were normal. A 4 mm polyp was found in the cecum. The polyp was sessile. The polyp was removed with a cold snare. Resection and retrieval werecomplete. Scattered small and large-mouthed diverticula were found in thesigmoid colon. The exam was otherwise without abnormality on direct and retroflexion views. Impressions/Post-Op Diagnosis: - One 4 mm polyp in the cecum, removed with a cold snare. Resectedand retrieved. - Diverticulosis in the sigmoid colon. - The examination was otherwise normal on direct and retroflexionviews. Recommendation: - Patient has a contact number available for emergencies. The signsand symptoms of potential delayed complications were discussed with the patient. Return to normal activities tomorrow. Written discharge instructions were provided to the patient. - Resume previous diet. - Continue present medications. - Await pathology results. - Repeat colonoscopy is recommended. The colonoscopy date will be determined after pathology results from today's exam become available for review. Moderate Sedation: Moderate (conscious) sedation was administered by the endoscopy nurse and supervised by the endoscopist. The following parameters were monitored: oxygen saturation, heart rate, respiratory rate, blood pressure, adequacy of pulmonary ventilation and reponse to care. Please refer to the patient's medical record flowsheets and nursing notes for moderate sedation details. Total physician intraservice time was 23 minutes. Trey Escobar MD 12/05/2020 11:18:13 AM This report has been signed electronically. Note Initiated On: 12/05/2020 10:14 AM Procedure Code(s): --- Professional --- 69766, Colonoscopy, flexible; with removalof tumor(s), polyp(s), or other lesion(s) bysnare technique Diagnosis Code(s): --- Professional --- Z12.11, Encounter for screening formalignant neoplasm of colon K63.5, Polyp of colon K57.30, Diverticulosis of large intestine without perforation or abscess withoutbleeding CPT copyright 2019 [employer]. All rights reserved. The codes documented in this report are preliminary and upon transit mechanic reviewmay be revised to meet current compliance requirements. Scope In: 10:49:50 AM Scope Withdrawal Time 0 hours 9 minutes 2 seconds Scope Out: 11:10:39 AM Trey Escobar MD PROCEDURE ORD * LIPID PANEL W REFLEX MEASURED LDL (11/06/2020 12:22 PM COMPOSITE ENGINEER) CHOLESTEROL,TOTAL 192 100 - 199 mg/dL 11/06/2020 7:11 PM COMPOSITE ENGINEER [facility] TRIGLYCERIDES 63 <150 mg/dL 11/06/2020 7:11 PM COMPOSITE ENGINEER [facility] HDL CHOLESTEROL 97 >40 mg/dL 7:11 PM COMPOSITE ENGINEER [facility] NON-HDL CHOLESTEROL 95 <145 mg/dl 11/06/2020 7:11 PM COMPOSITE ENGINEER [facility] CHOL/HDL RATIO 1.98 <4.50 11/06/2020 7:11 PM COMPOSITE ENGINEER [facility] LDL CHOLESTEROL 82 <=130 mg/dL 11/06/2020 7:11 PM COMPOSITE ENGINEER [facility] PROVIDER ORDERED STATUS RANDOM 11/06/2020 7:11 PM COMPOSITE ENGINEER [employer] [facility] Blood BLOOD SPECIMEN / Unknown Venipuncture / Unknown 11/06/2020 12:22 PM COMPOSITE ENGINEER 11/06/2020 12:22 PM COMPOSITE ENGINEER Miesha Garay MD CHEMISTRY [facility] [facility] [address] [place] [address], from Last 3 Months or Most Recently Relevant to Health Maintenance Care Teams Network Design Architect Relationship Specialty Start Date End Date Miesha Garay MD [address] [place], [place] [id number] PCP - General Family Practice 05/24/21
== END 2024-06-02 19:43 | disposition home or self-care (01) ==
LOC: ED 19:41
PROVIDERS: Emergency Provider Emergency Medicine Emergency Medical Services; PCP Family Medicine
DX: R07.89 Other chest pain (principal)
CPT/HCPCS: 84484; 93005; 99284